=== PATIENT | male | born 1980 | race Caucasian/White ===

== ENCOUNTER 2016-12-26 06:19 | Emergency (ER) | payer OTHER ==
[~2016-12-26] VITALS: Ht 185.4 cm; Wt 189.0 kg
[2016-12-26] MEDS ORDERED: AMOXICILLIN TRIHYDRATE 250 MG CAPSULE PO ONE (09:30)
[2016-12-26 09:33] VITALS: BP 160/100
== END 2016-12-26 09:35 | disposition home or self-care (01) ==
LOC: EMS 06:23
DX: H66.93 Otitis media, unspecified, bilateral (principal); E66.9 Obesity, unspecified; F17.210 Nicotine dependence, cigarettes, uncomplicated; F12.90 Cannabis use, unspecified, uncomplicated; Z88.0 Allergy status to penicillin; Z68.43 Body mass index [BMI] 50.0-59.9, adult
CPT/HCPCS: 99283; 99406

== ENCOUNTER 2016-12-29 06:58 | Emergency (ER) | payer OTHER ==
[~2016-12-29] VITALS: Ht 185.4 cm; Wt 188.6 kg
[2016-12-29 07:59] VITALS: BP 134/85
== END 2016-12-29 08:34 | disposition home or self-care (01) ==
LOC: EMS 06:58
DX: H66.93 Otitis media, unspecified, bilateral (principal); J32.9 Chronic sinusitis, unspecified; F17.210 Nicotine dependence, cigarettes, uncomplicated; F12.90 Cannabis use, unspecified, uncomplicated; Z88.0 Allergy status to penicillin
CPT/HCPCS: 99282

== ENCOUNTER 2016-12-31 02:58 | Emergency (ER) | payer OTHER ==
[~2016-12-31] VITALS: Ht 193 cm; Wt 188.0 kg
[2016-12-31] MEDS ORDERED: AMOX125S7 PO (03:18)
[2016-12-31] MEDS ORDERED: GENTAMICIN SULFATE 0.3% OPHTHALMIC SOLUTION 5 ML OU ONE (04:00)
[2016-12-31 04:25] VITALS: BP 154/96
== END 2016-12-31 04:27 | disposition home or self-care (01) ==
LOC: EMS 02:59
DX: J06.9 Acute upper respiratory infection, unspecified (principal); L03.211 Cellulitis of face; H10.9 Unspecified conjunctivitis; F12.90 Cannabis use, unspecified, uncomplicated; F17.200 Nicotine dependence, unspecified, uncomplicated; Z88.0 Allergy status to penicillin
CPT/HCPCS: 99283